=== PATIENT | male | born 1940 | race Caucasian/White ===

== ENCOUNTER → 2017-08-07 | Outpatient (CLI) | payer MEDICARE ==
[~2017-08-07] MED LIST: ASPI-555 PO; FENO43CA5 PO; FOLI0.8T22 PO; HYDR-3420 PO; INSLAN SQ; INSU100V SQ; LOSA100T29 PO; METO200T49 PO; OMEG-75 PO; PRAV10TA39 PO; TERA5CAP4 PO
== END | disposition home or self-care (01) ==
LOC: SHCH 12:58
PROVIDERS: ATTEND Internal Medicine Cardiovascular Disease
DX: I65.23 Occlusion and stenosis of bilateral carotid arteries (principal); I13.0 Hypertensive heart and chronic kidney disease with heart failure and stage 1 through stage 4 chronic kidney disease, or unspecified chronic kidney disease; E11.22 Type 2 diabetes mellitus with diabetic chronic kidney disease; N18.3 Chronic kidney disease, stage 3 (moderate); I50.23 Acute on chronic systolic (congestive) heart failure; I25.10 Atherosclerotic heart disease of native coronary artery without angina pectoris; E78.5 Hyperlipidemia, unspecified
CPT/HCPCS: 93880

== ENCOUNTER → 2018-07-23 | Outpatient (CLI) | payer MEDICARE ==
[~2018-07-23] MED LIST changes: +AEC81 PO; -ASPI-555 PO; -FENO43CA5 PO; -FOLI0.8T22 PO; +GARLIC EXTRACT PO; -HYDR-3420 PO; +HYDR-4154 PO; -INSLAN SQ; -INSU100V SQ; +INSU200I SQ; +INSU3INS3 SQ; -LOSA100T29 PO; +LOSA100T58 PO; +NIAC500T7 PO; -OMEG-75 PO; +OMEGA PO; +TERA2CAP4 PO; -TERA5CAP4 PO; +TORS100T16 PO; +UBID1CAP56 PO; +[UNRECOGNIZED DRUG - OTHER] PO
== END | disposition home or self-care (01) ==
LOC: OIH 08:53
PROVIDERS: ATTEND Internal Medicine
DX: R06.09 Other forms of dyspnea (principal); M47.814 Spondylosis without myelopathy or radiculopathy, thoracic region
CPT/HCPCS: 71046

== ENCOUNTER 2018-12-14 15:21 | Inpatient (IN) | payer MEDICARE ==
[~2018-12-14] VITALS: Ht 160 cm; Wt 90.1 kg
[2018-12-14 16:02] LABS: BASOPHILS % (AUTO) 0.4 % (0.0-5.0); EOSINOPHILS % (AUTO) 4.8 % (0.0-8.0); LYMPHOCYTES % (AUTO) 10.7 % (21.0-51.0); MEAN CORPUSCULAR HGB CONC 35.3 g/dL (32.0-36.0); MEAN CORPUSCULAR VOLUME 85.2 fL (79-99); MONOCYTES % (AUTO) 8.2 % (3.0-13.0); NEUTROPHILS % (AUTO) 75.9 % (40.0-77.0); PLATELET COUNT (AUTO) 197 K/uL (130-400); RED BLOOD CELL COUNT(AUTO) 3.29 MIL/uL (4.50-6.20); RED CELL DISTRIBUTION WIDTH 13.3 % (11.0-15.5)
[2018-12-14 16:14] LABS: INR 0.97 (0.85-1.15); PARTIAL THROMBOPLASTIN TIME 31.2 SEC (26.3-35.5); PROTHROMBIN TIME 10.2 SEC (9.6-11.6)
[2018-12-14 16:54] LABS: ALANINE AMINOTRANSFERASE 34 U/L (12-78); ALBUMIN 3.5 g/dL (3.5-5.0); ASPARTATE AMINOTRANSFERASE 24 U/L (10-37); BILIRUBIN,TOTAL 0.4 mg/dL (0.2-1.0); CARBON DIOXIDE 28 mmol/L (21-32); CHLORIDE 96 mmol/L (101-111); CREATINE KINASE, TOTAL 373 U/L (21-232); CREATININE 3.3 mg/dL (0.5-1.5); GLOMERULAR FILTR. RATE CALC 19 mL/min (>60); GLUCOSE,RANDOM 207 mg/dL (70-105); MYOGLOBIN 291 ng/mL (10-92); POTASSIUM 4.7 mmol/L (3.5-5.1); SODIUM SERUM 133 mmol/L (136-145); TOTAL PROTEIN, SERUM 6.9 g/dL (6.0-8.3); TROPONIN I < 0.04 ng/mL (0.00-0.06)
[2018-12-14 16:57] LABS: UREA NITROGEN, BLOOD 91 mg/dL (7-18)
[2018-12-14] MEDS ORDERED: SODIUM CHLORIDE 0.9% 1000ML 1,000 ML IV ONE (17:01)
[2018-12-14 17:47] LABS: APPEARANCE,URINE Clear (CLEAR); BILIRUBIN,URINE Negative (NEGATIVE); COLOR,URINE Yellow (YELLOW); GLUCOSE, URINE (UA) Negative (NEGATIVE); KETONES,URINE Negative (NEGATIVE); LEUKOCYTE ESTERASE ,URINE Trace (NEGATIVE); NITRATE,URINE Negative (NEGATIVE); OCCULT BLOOD,URINE Negative (NEGATIVE); PROTEIN,URINE Negative (NEGATIVE); UROBILINOGEN,URINE 0.2 mg/dL (0.2-1.0)
[2018-12-14 17:58] LABS: BACTERIA,URINE Rare /HPF (None Seen); RBC,URINE 0-1 /HPF (0-1); SQUAMOUS EPITHELIAL CELL,UR Rare /HPF (0-2)
[2018-12-14] MEDS ORDERED: CEFTRIAXONE SODIUM 1 GM ONE (20:26)
[2018-12-14] MEDS ORDERED: 1/2 NORMAL SALINE 1,000 ML IV ONE (20:29)
[2018-12-14 21:40] VITALS: BP 130/66
[2018-12-14] MEDS ORDERED: ICOS1CAP PO (23:08)
[2018-12-14] MEDS ORDERED: SIMV10TA6 PO (23:08)
[2018-12-14] MEDS ORDERED: HYDR-4153 PO (23:08)
[2018-12-15 00:08] VITALS: BP 141/64
[2018-12-15 04:27] VITALS: BP 139/63
[2018-12-15 04:36] LABS: HEMATOCRIT 26.9 % (42-54); MEAN CORPUSCULAR VOLUME 85.7 fL (79-99); PLATELET COUNT (AUTO) 163 K/uL (130-400); RED BLOOD CELL COUNT(AUTO) 3.13 MIL/uL (4.50-6.20); RED CELL DISTRIBUTION WIDTH 13.5 % (11.0-15.5); WHITE BLOOD COUNT (AUTO) 9.3 K/uL (4.8-10.8)
[2018-12-15 04:51] LABS: ALBUMIN 3.1 g/dL (3.5-5.0); BILIRUBIN,TOTAL 0.3 mg/dL (0.2-1.0); CREATININE 2.8 mg/dL (0.5-1.5); POTASSIUM 4.2 mmol/L (3.5-5.1); TOTAL PROTEIN, SERUM 6.2 g/dL (6.0-8.3)
[2018-12-15] MEDS ORDERED: 1/2 NORMAL SALINE 1,000 ML IV SCH (07:45)
--- NOTE | 2018-12-15 07:45 | NUR ---
DR GRAY IN TO SEE PATIENT ORDERS TO CHANGE SERVICE TO DR GARLAND AND NEPHROLOGY CONSULT ORDERS PLACED
[2018-12-15 08:00] VITALS: BP 150/67
--- NOTE | 2018-12-15 08:47 | NUR ---
DR ENCINAS NOTIFIED OF NEPHROLOGY CONSULT STATES HE WILL BE IN LATER TODAY.
--- NOTE | 2018-12-15 11:04 | NUR ---
[facility] met with pt and Ana Davis 425 [phone]. Prior to admission, pt was independent of all ADLS, no DME or in home care services. reports pt has hx of falls, and last fall was 3 weeks ago, pt fell on left side with bruising and soreness. PCP is Dr Torrez and uses [facility]. Denies dc needs at this time and plan is home. Addendum: 12/15/18 at 1108 by ALEXIS HAILE Amended: Links added.
[2018-12-15 12:00] VITALS: BP 143/57
--- NOTE | 2018-12-15 13:55 | NUR ---
DR PADILLA ROUNDED ON PATIENT ORDERS RECEIVED FOR AM LABS , RENAL US, I&O'S, DAILY WEIGHT NEPHRO CAP DAILY
[2018-12-15 16:00] VITALS: BP 164/67
[2018-12-15 19:30] VITALS: BP 167/78
[2018-12-15] MEDS: CEFTRIAXONE SODIUM 1 GM IVP SCH (21:55)
[2018-12-16] VITALS: BP 150/71
[2018-12-16 03:30] VITALS: BP 160/74
[2018-12-16 05:05] LABS: BASOPHILS % (AUTO) 0.6 % (0.0-5.0); EOSINOPHILS % (AUTO) 7.2 % (0.0-8.0); HEMATOCRIT 28.1 % (42-54); LYMPHOCYTES % (AUTO) 12.2 % (21.0-51.0); MEAN CORPUSCULAR HEMOGLOBIN 29.8 pg (27.0-33.0); MEAN CORPUSCULAR HGB CONC 35.5 g/dL (32.0-36.0); MEAN CORPUSCULAR VOLUME 83.8 fL (79-99); MONOCYTES % (AUTO) 9.5 % (3.0-13.0); NEUTROPHILS % (AUTO) 70.5 % (40.0-77.0); PLATELET COUNT (AUTO) 197 K/uL (130-400); RED BLOOD CELL COUNT(AUTO) 3.35 MIL/uL (4.50-6.20); RED CELL DISTRIBUTION WIDTH 13.4 % (11.0-15.5); WHITE BLOOD COUNT (AUTO) 7.4 K/uL (4.8-10.8)
[2018-12-16 05:11] LABS: CREATININE 2.5 mg/dL (0.5-1.5); POTASSIUM 4.4 mmol/L (3.5-5.1)
--- NOTE | 2018-12-16 06:25 | NUR ---
GILL LYLE rounded: Visited and talked to the patient with new orders: 1. CBC and CMP robe ( 12/17/18) 2. do post void bladder scan. If the result is >200 ml insert FC and attached to urobag.
[2018-12-16] MEDS: ICOSAPENT ETHYL 2 GM PO SCH ×2 (07:30→16:30)
[2018-12-16] MEDS: INSULIN GLARGINE 100 UNITS/ML 10 ML VIAL SQ SCH ×2 (07:34→16:30)
[2018-12-16] MEDS: INSULIN LISPRO 100 UNIT/ML 3ML SQ SCH ×3 (07:35→17:00)
[2018-12-16 08:00] VITALS: BP 166/68
[2018-12-16] MEDS ORDERED: INSULIN LISPRO 100 UNIT/ML 3ML SQ SCH ×3 (09:00→17:00)
[2018-12-16] MEDS ORDERED: VIT E ACETATE PO SCH (09:00)
[2018-12-16] MEDS ORDERED: UBIDECARENONE PO SCH (09:00)
[2018-12-16] MEDS: FOLIC ACID/VITAMIN B COMP W-C 1 MG CAP/TAB PO SCH (09:31)
[2018-12-16] MEDS: METOPROLOL TARTRATE 50 MG TAB PO SCH ×2 (09:31→22:11)
[2018-12-16] MEDS: HYDRALAZINE HCL 25 MG TABLET PO SCH (09:31)
[2018-12-16 12:00] VITALS: BP 146/68
--- NOTE | 2018-12-16 12:20 | NUR ---
DR PADILLA ROUNDED ON PATIENT NEW ORDERS FOR LABS IN AM AND PT EVAL AND TX
[2018-12-16 16:00] VITALS: BP 182/78
[2018-12-16 20:00] VITALS: BP 177/82
[2018-12-16] MEDS ORDERED: ASPIRIN 81 MG EC TAB PO SCH (21:00)
[2018-12-16] MEDS ORDERED: TERAZOSIN HCL 2 MG CAPSULE PO SCH (21:00)
[2018-12-16] MEDS ORDERED: SIMVASTATIN 10 MG TABLET PO SCH (21:00)
[2018-12-16] MEDS: CEFTRIAXONE SODIUM 1 GM IVP SCH (22:10)
[2018-12-17] VITALS: BP 143/58
[2018-12-17 04:00] VITALS: BP 148/59
[2018-12-17 05:48] LABS: % IRON SATURATION 10.3 % (30-44)
[2018-12-17 05:51] LABS: BASOPHILS % (AUTO) 0.6 % (0.0-5.0); EOSINOPHILS % (AUTO) 7.1 % (0.0-8.0); HEMATOCRIT 27.6 % (42-54); LYMPHOCYTES % (AUTO) 12.1 % (21.0-51.0); MEAN CORPUSCULAR HEMOGLOBIN 29.7 pg (27.0-33.0); MEAN CORPUSCULAR HGB CONC 34.8 g/dL (32.0-36.0); MEAN CORPUSCULAR VOLUME 85.4 fL (79-99); MONOCYTES % (AUTO) 9.1 % (3.0-13.0); NEUTROPHILS % (AUTO) 71.1 % (40.0-77.0); PLATELET COUNT (AUTO) 187 K/uL (130-400); RED BLOOD CELL COUNT(AUTO) 3.23 MIL/uL (4.50-6.20); RED CELL DISTRIBUTION WIDTH 13.5 % (11.0-15.5); WHITE BLOOD COUNT (AUTO) 7.5 K/uL (4.8-10.8)
[2018-12-17 06:01] LABS: BILIRUBIN,TOTAL 0.3 mg/dL (0.2-1.0); POTASSIUM 4.3 mmol/L (3.5-5.1); TOTAL PROTEIN, SERUM 6.5 g/dL (6.0-8.3)
[2018-12-17] MEDS: INSULIN GLARGINE 100 UNITS/ML 10 ML VIAL SQ SCH (06:01)
--- NOTE | 2018-12-17 06:30 | NUR ---
Lore LYLE rounded: Seen and talked to patient. Ordered ok to go home and continue home medication. Follow up visit in clinic 2-3 days after.
[2018-12-17] MEDS: ICOSAPENT ETHYL 2 GM PO SCH (07:30)
[2018-12-17 08:00] VITALS: BP 161/70
[2018-12-17] MEDS: INSULIN LISPRO 100 UNIT/ML 3ML SQ SCH ×2 (08:00→12:29)
--- NOTE | 2018-12-17 08:08 | NUR ---
PT. INSISTING HE IS READY TO GO HOME, STATES DR. GARLAND TOLD HIM HE WAS DISCHARGING HIM THIS AM IF OK WITH NEPHRO. PAGED NOW.
[2018-12-17] MEDS: FOLIC ACID/VITAMIN B COMP W-C 1 MG CAP/TAB PO SCH (08:24)
[2018-12-17] MEDS: HYDRALAZINE HCL 25 MG TABLET PO SCH (08:25)
[2018-12-17] MEDS: METOPROLOL TARTRATE 50 MG TAB PO SCH (08:25)
--- NOTE | 2018-12-17 08:51 | NUR ---
DR. PADILLA RETURNED CALL, STATES HE WILL BE HERE AT NOON. DID NOT OK DC AT THIS TIME. PT. NOT HAPPY.
[2018-12-17 12:00] VITALS: BP 167/75
--- NOTE | 2018-12-17 13:05 | NUR ---
PT. DECIDED COULDN'T OR RATHER WOULDN'T WAIT FOR DR. PADILLA. AMA FORM SIGNED, APPARENTLY RAN INTO DR. PADILLA IN THE ELEVATORS AND TALKED TO HIM.
== END 2018-12-17 13:18 | disposition left against medical advice (07) | DRG 683 ==
LOC: EDH 15:21 → EDHIP 18:58 → OBSVTOIN 18:58 → 3AH 21:00
PROVIDERS: ADMIT Internal Medicine; ATTEND Internal Medicine
DX: N17.9 Acute kidney failure, unspecified (principal); I13.0 Hypertensive heart and chronic kidney disease with heart failure and stage 1 through stage 4 chronic kidney disease, or unspecified chronic kidney disease; I42.9 Cardiomyopathy, unspecified; I50.9 Heart failure, unspecified; E86.0 Dehydration; E11.22 Type 2 diabetes mellitus with diabetic chronic kidney disease; E11.21 Type 2 diabetes mellitus with diabetic nephropathy; D64.9 Anemia, unspecified; N18.9 Chronic kidney disease, unspecified; D72.829 Elevated white blood cell count, unspecified; E11.51 Type 2 diabetes mellitus with diabetic peripheral angiopathy without gangrene; E78.5 Hyperlipidemia, unspecified; N40.0 Benign prostatic hyperplasia without lower urinary tract symptoms; G47.30 Sleep apnea, unspecified; I25.10 Atherosclerotic heart disease of native coronary artery without angina pectoris; J44.9 Chronic obstructive pulmonary disease, unspecified; E66.9 Obesity, unspecified; Z68.35 Body mass index [BMI] 35.0-35.9, adult
CPT/HCPCS: 36415; 70450; 71045; 76770; 80048; 80053; 81001; 82550; 82948; 83540; 83550; 83605; 83874; 84484; 85025; 85027; 85610; 85730; 87040; 87088; 93005; G0378; J0696; J7030

== ENCOUNTER → 2020-07-19 | Outpatient (CLI) | payer MEDICARE ==
[~2020-07-19] MED LIST changes: -GARLIC EXTRACT PO; +HYDR-4153 PO; -HYDR-4154 PO; +ICOS1CAP PO; -NIAC500T7 PO; -OMEGA PO; -PRAV10TA39 PO; +SIMV10TA97 PO; -[UNRECOGNIZED DRUG - OTHER] PO
== END | disposition home or self-care (01) ==
LOC: OIH 09:32
PROVIDERS: ATTEND Internal Medicine
DX: M47.26 Other spondylosis with radiculopathy, lumbar region (principal); M62.830 Muscle spasm of back
CPT/HCPCS: 72100

== ENCOUNTER → 2020-07-21 | Outpatient (CLI) | payer MEDICARE | END | disposition home or self-care (01) | LOC: RAH 08:29 | PROVIDERS: ATTEND Orthopaedic Surgery | DX: M16.11 Unilateral primary osteoarthritis, right hip (principal); N40.0 Benign prostatic hyperplasia without lower urinary tract symptoms; M70.61 Trochanteric bursitis, right hip; K57.30 Diverticulosis of large intestine without perforation or abscess without bleeding | CPT/HCPCS: 73721 ==

== ENCOUNTER 2020-08-03 05:53 | Day surgery (SDC) | payer MEDICARE ==
[2020-08-02 12:01] VITALS: BP 199/91
[~2020-08-03] VITALS: Ht 175.3 cm; Wt 93.2 kg
[2020-08-03] VITALS (12 sets, daily range): BP systolic 132–151; BP diastolic 57–92
[~2020-08-03 05:53] MED LIST changes: +FOLI0.8T41 PO; -TERA2CAP4 PO; +UBID100C10 PO; -UBID1CAP56 PO
[2020-08-03] MEDS ORDERED: CEFAZOLIN SODIUM 1 GM VIAL IVP SCH (06:00)
[2020-08-03] MEDS ORDERED: LACTATED RINGERS 1000ML 0 ML IV ONE (06:19)
[2020-08-03] MEDS ORDERED: 0.9%NACL 1000ML 1,000 ML IV ONE (06:26)
[2020-08-03] MEDS ORDERED: BUPIVACAINE/PF 0.5% 30ML VIAL ONE (06:53)
[2020-08-03] MEDS ORDERED: MIDAZOLAM HCL 1 MG/ML 2ML VIAL ONE (07:41)
[2020-08-03] MEDS ORDERED: LIDOCAINE PF 100MG/5ML (2%) SYRINGE 5ML ONE (07:41)
[2020-08-03] MEDS ORDERED: PROPOFOL 10 MG/ML 20ML VIAL IV ONE (07:41)
[2020-08-03] MEDS ORDERED: FENTANYL CITRATE PF 50 MCG/1 ML 2ML VIAL ONE (07:41)
[2020-08-03] MEDS ORDERED: IOPAMIDOL 10 ML VIAL ONE (08:07)
[2020-10-21] MEDS ORDERED: HYDR-4153 PO (19:18)
[2020-10-21] MEDS ORDERED: SIMV10TA97 PO (19:30)
[2020-10-21] MEDS ORDERED: METO200T49 PO (19:33)
[2020-10-21] MEDS ORDERED: ERGO500093 PO (19:33)
[2020-10-21] MEDS ORDERED: FOLI0.8T22 PO (19:36)
[2020-10-21] MEDS ORDERED: ICOS1CAP PO (19:36)
[2020-10-21] MEDS ORDERED: LOSA1TAB37 PO (19:36)
[2020-10-21] MEDS ORDERED: HYDR-4154 PO (19:36)
[2020-10-21] MEDS ORDERED: ASPI-1005 PO (19:36)
[2020-10-21] MEDS ORDERED: INSU100V IV (19:37)
== END 2020-08-03 09:45 | disposition home or self-care (01) ==
LOC: DAH 05:53
PROVIDERS: ATTEND Orthopaedic Surgery
DX: M16.11 Unilateral primary osteoarthritis, right hip (principal); Z20.822 Contact with and (suspected) exposure to COVID-19; S73.191A Other sprain of right hip, initial encounter; E11.22 Type 2 diabetes mellitus with diabetic chronic kidney disease; I13.0 Hypertensive heart and chronic kidney disease with heart failure and stage 1 through stage 4 chronic kidney disease, or unspecified chronic kidney disease; N18.4 Chronic kidney disease, stage 4 (severe); I25.2 Old myocardial infarction; E78.5 Hyperlipidemia, unspecified; G89.29 Other chronic pain; Z88.0 Allergy status to penicillin; Z98.890 Other specified postprocedural states; Z98.42 Cataract extraction status, left eye; Z98.41 Cataract extraction status, right eye; Z87.891 Personal history of nicotine dependence; Z83.3 Family history of diabetes mellitus; Z79.899 Other long term (current) drug therapy; Z79.4 Long term (current) use of insulin; X58.XXXA Exposure to other specified factors, initial encounter
CPT/HCPCS: 20610; 73502; 82948 ×2; A4215; A4221; A4222; A4223; A4663; A4930; A5120; C9803; J0690; J1030; J2001; J2250; J2704; J3010; J3490; J7030 ×2; Q9966; U0003; J7120

== ENCOUNTER 2020-10-25 17:15 | Inpatient (IN) | payer OTHER ==
[~2020-10-25 17:15] MED LIST changes: +ASPI-1005 PO; +ERGO500093 PO; +FOLI0.8T22 PO; +HYDR-4154 PO; +INSU100V IV; +LOSA1TAB37 PO
[2020-10-25] MEDS ORDERED: ONDANSETRON 4MG INJ IVP PRN (20:15)
[2020-10-25] MEDS ORDERED: ACETAMINOPHEN 650 MG SUPPOSITORY RC PRN (20:15)
[2020-10-25] MEDS ORDERED: BISACODYL 10 MG SUPP.RECT RC PRN (20:15)
[2020-10-25] MEDS ORDERED: GLYCOPYRROLATE 1 MG/5 ML SYRINGE IV PRN (20:15)
[2020-10-25 21:57] VITALS: BP 125/83
[2020-10-25] MEDS: LORAZEPAM 2 MG/ML 1 ML VIAL IVP PRN (22:42)
[2020-10-25] MEDS: MORPHINE 2 MG SYG IVP PRN (22:43)
[2020-10-26] MEDS: MORPHINE 2 MG SYG IVP PRN ×2 (00:26→21:30)
[2020-10-26] MEDS: LORAZEPAM 2 MG/ML 1 ML VIAL IVP PRN ×2 (01:12→21:29)
[2020-10-27] MEDS: LORAZEPAM 2 MG/ML 1 ML VIAL IVP PRN ×4 (02:12→20:45)
[2020-10-27] MEDS: MORPHINE 2 MG SYG IVP PRN ×3 (02:13→20:45)
[2020-10-27 20:01] VITALS: BP 168/103
[2020-10-28] MEDS: LORAZEPAM 2 MG/ML 1 ML VIAL IVP PRN ×3 (04:22→22:36)
[2020-10-28] MEDS: MORPHINE 2 MG SYG IVP PRN ×6 (04:22→21:09)
[2020-10-28 07:26] LABS: HEMATOCRIT 30.7 % (42-54); MEAN CORPUSCULAR HEMOGLOBIN 28.2 pg (27.0-33.0); MEAN CORPUSCULAR HGB CONC 31.9 g/dL (32.0-36.0); MEAN CORPUSCULAR VOLUME 88.2 fL (79-99); PLATELET COUNT (AUTO) 326 K/uL (130-400); RED BLOOD CELL COUNT(AUTO) 3.48 MIL/uL (4.50-6.20); WHITE BLOOD COUNT (AUTO) 8.2 K/uL (4.8-10.8)
[2020-10-28 07:41] LABS: POTASSIUM 4.7 mmol/L (3.5-5.1)
[2020-10-28 08:00] VITALS: BP 172/90
[2020-10-28 08:52] LABS: EOSINOPHILS % (MANUAL) 3 % (1-6); LYMPHOCYTES % (MANUAL) 5 % (22-44); MAN.DIFF COMMENT-IMPRESSION MANUAL DIFFERENTIAL; MONOCYTES % (MANUAL) 4 % (2-9); PLATELET MORPHOLOGY COMMENT ADEQUATE; SEGMENTED NEUTROPHILS % 88 % (40-70)
[2020-10-28 20:20] VITALS: BP 146/62
[2020-10-29] MEDS: MORPHINE 2 MG SYG IVP PRN ×4 (00:41→20:36)
[2020-10-29] MEDS: LORAZEPAM 2 MG/ML 1 ML VIAL IVP PRN ×4 (05:11→15:31)
[2020-10-29] MEDS ORDERED: LORAZEPAM 2 MG/ML 1 ML VIAL IVP SCH (06:30)
[2020-10-29 12:00] VITALS: BP 158/79
[2020-10-29] MEDS: LORAZEPAM 2 MG/ML 1 ML VIAL IVP SCH ×3 (13:00→21:00)
[2020-10-29 20:24] VITALS: BP 113/74
[2020-10-30] MEDS: LORAZEPAM 2 MG/ML 1 ML VIAL IVP SCH ×6 (01:03→21:00)
[2020-10-30] MEDS: MORPHINE 2 MG SYG IVP PRN ×4 (04:56→17:13)
[2020-10-30 08:00] VITALS: BP 141/43
[2020-10-30] MEDS: LORAZEPAM 2 MG/ML 1 ML VIAL IVP PRN (15:11)
[2020-10-30 16:00] VITALS: BP 113/54
== END 2020-10-30 21:05 | DRG 189 ==
LOC: 2DH 17:15 → 3CH 22:05 → 3DH 10-26 12:26
PROVIDERS: ADMIT Internal Medicine; ATTEND Internal Medicine
PROC: 5A09457 Assistance with Respiratory Ventilation, 24-96 Consecutive Hours, Continuous Positive Airway Pressure (ICD-10-PCS; principal; 2020-10-25)
PROC: 5A09357 Assistance with Respiratory Ventilation, Less than 24 Consecutive Hours, Continuous Positive Airway Pressure (ICD-10-PCS; 2020-10-27)
DX: J96.00 Acute respiratory failure, unspecified whether with hypoxia or hypercapnia (principal); J18.9 Pneumonia, unspecified organism; J44.1 Chronic obstructive pulmonary disease with (acute) exacerbation; N17.9 Acute kidney failure, unspecified; J44.0 Chronic obstructive pulmonary disease with (acute) lower respiratory infection; N18.4 Chronic kidney disease, stage 4 (severe); I13.0 Hypertensive heart and chronic kidney disease with heart failure and stage 1 through stage 4 chronic kidney disease, or unspecified chronic kidney disease; E11.22 Type 2 diabetes mellitus with diabetic chronic kidney disease; E78.5 Hyperlipidemia, unspecified; I48.91 Unspecified atrial fibrillation; Z51.5 Encounter for palliative care; F41.9 Anxiety disorder, unspecified; I50.9 Heart failure, unspecified; R53.81 Other malaise; Z87.891 Personal history of nicotine dependence
CPT/HCPCS: 36415; 80048; 85025; 94660; 94664; G0378; J2060